=== PATIENT | male | born 1935 | race African-American/Black ===

== ENCOUNTER 2021-11-20 22:15 | Inpatient (IN) | payer OTHER ==
[2021-11-20 22:57] LABS: Bilirubin Neg (Negative); Blood, Urine 10 (Negative); Glucose, Urine (Dipstick) Normal (Negative); Ketone, Urine Negative (Negative); Leukocyte 25 (Negative); Nitrite Positive (Negative); Protein, Urine (Dipstick) 30 mg/dl (Neg-Trace); Urobilinogen Normal mg/dL (Less than 2); pH, Urine 6.5 (5.0-9.0)
[2021-11-20 22:58] LABS: Clarity Clear (Clear)
[2021-11-20 23:08] LABS: Bacteria/HPF Rare-Few HPF (None Seen); Squamous Epithelial 0-3 HPF (0-3); WBC/HPF 21-50 HPF (0-3)
[2021-11-20] MEDS ORDERED: methylPREDNISolone Sod Succ/PF 125 MG/2 ML VIAL ONE (23:24)
[2021-11-20] MEDS ORDERED: Magnesium 2 GM/50 ML BAG (IN WATER) ONE (23:24)
[2021-11-20 23:34] LABS: #Eosinphils 0.2 10x3/uL (0.0-0.5); #Monocytes 0.6 10x3/uL (0.0-1.1); #Neutrophils 7.6 10x3/uL (1.5-8.4); %Basophils 0.2 % (0.0-2.0); %Eosinophils 1.8 % (0.0-6.0); %Lymphocytes 15.2 % (18.0-47.0); %Neutrophils 75.8 % (40.0-75.0); Mean Corpuscular HGB CONC 32.6 g/dL (32.0-36.0); Mean Corpuscular Hemoglobin 28.9 pg (27.0-33.0); Mean Corpuscular Volume 88.7 fl (81.2-95.1); Mean Platelet Volume 8.8 fl (7.4-10.4); Platelet Count 173 10x3/uL (150-450); RBC Distribution Width 15.1 % (11.5-14.5); Red Blood Cell (RBC) Count 4.15 10x6/uL (4.32-5.72)
[2021-11-20 23:36] LABS: SARS-CoV-2 NAA Rapid Test Not Detected (NotDetected)
[2021-11-20 23:53] LABS: AST (SGOT) 21 U/L (5-34); Albumin 3.8 g/dL (3.4-4.8); Alkaline Phosphatase 62 U/L (40-110); Anion Gap 14 mmol/L (10-20); BUN (Urea Nitrogen) 19 mg/dL (8.4-25.7); Bilirubin, Total 0.7 mg/dL (0.2-1.2); Calc. Creatinine Clearance 0 mL/min (70-130); Calcium 8.9 mg/dL (7.8-10.44); Carbon Dioxide 24 mmol/L (23-31); Chloride 108 mmol/L (98-107); Estimated GFR 61; Globulin 3.2 g/dL (2.4-3.5); Glucose 106 mg/dL (83-110); Potassium 4.1 mmol/L (3.5-5.1); Sodium 142 mmol/L (136-145)
[2021-11-20 23:57] LABS: ALT (SGPT) 21 U/L (8-55); CK (CPK) 147 U/L (30-200)
[2021-11-21] MEDS ORDERED: Cefepime 2 GM VIAL ONE (00:31)
[2021-11-21] MEDS ORDERED: Aspirin Chewable 81 MG TAB ONE (00:31)
[2021-11-21] MEDS ORDERED: Senokot S 8.6-50 MG TAB PO PRN (01:22)
[2021-11-21] MEDS ORDERED: Acetaminophen 325 MG TAB PO PRN (01:33)
[2021-11-21 03:58] LABS: #Monocytes 0.1 10x3/uL (0.0-1.1); #Neutrophils 11.2 10x3/uL (1.5-8.4); %Basophils 0.2 % (0.0-2.0); %Monocytes 0.8 % (0.0-10.0); %Neutrophils 95.4 % (40.0-75.0); Hemoglobin 11.8 g/dL (13.5-17.5); Mean Corpuscular Hemoglobin 29.2 pg (27.0-33.0); Mean Corpuscular Volume 88.6 fl (81.2-95.1); Mean Platelet Volume 9.3 fl (7.4-10.4); Platelet Count 161 10x3/uL (150-450); Red Blood Cell (RBC) Count 4.04 10x6/uL (4.32-5.72); White Blood Cell (WBC) Count 11.7 10x3/uL (3.5-10.5)
[2021-11-21] MEDS ORDERED: cefTRIAXone\\ROCEPHIN 1 GM VIAL ONE (04:12)
[2021-11-21] MEDS ORDERED: Azithromycin 500 MG VIAL ONE (04:13)
[2021-11-21] MEDS: cefTRIAXone\\ROCEPHIN 1 GM in Sodium Chloride 0.9% 100 ML IVPB SCH (04:14)
[2021-11-21 04:15] LABS: Anion Gap 15 mmol/L (10-20); BUN (Urea Nitrogen) 18 mg/dL (8.4-25.7); Calc. Creatinine Clearance 0 mL/min (70-130); Calcium 8.7 mg/dL (7.8-10.44); Carbon Dioxide 22 mmol/L (23-31); Chloride 107 mmol/L (98-107); Estimated GFR 68; Glucose 144 mg/dL (83-110); Magnesium 2.2 mg/dL (1.6-2.6); Potassium 4.4 mmol/L (3.5-5.1); Sodium 140 mmol/L (136-145)
[2021-11-21 04:21] LABS: Troponin I 0.049 ng/mL (< 0.028)
[2021-11-21] MEDS: Azithromycin 500 MG in Sodium Chloride 0.9% 250 ML 250 ML IVPB SCH (04:35)
[2021-11-21] MEDS ORDERED: methylPREDNISolone Sod Succ 40 MG VIAL ONE ×2 (05:47→18:47)
[2021-11-21] MEDS: Levothyroxine Sodium 25 MCG TAB PO SCH (06:00)
[2021-11-21] MEDS: methylPREDNISolone Sod Succ 40 MG VIAL IVP SCH ×2 (06:02→18:48)
[2021-11-21] MEDS ORDERED: Metoprolol Tartrate 25 MG TAB ONE (08:27)
[2021-11-21] MEDS ORDERED: Enoxaparin Sodium 40 MG/0.4 ML SYRINGE ONE (08:28)
[2021-11-21] MEDS: Arformoterol 15 MCG/2 ML NEB NEB SCH ×2 (08:46→18:13)
[2021-11-21] MEDS: Loratadine 10 MG TAB PO SCH (09:19)
[2021-11-21] MEDS: Calcium Carbonate 600 MG + Vit D TAB PO SCH ×2 (09:19→21:58)
[2021-11-21] MEDS: Enoxaparin Sodium 40 MG/0.4 ML SYRINGE SC SCH (09:19)
[2021-11-21] MEDS: Metoprolol Tartrate 25 MG TAB PO SCH ×2 (09:20→21:59)
[2021-11-21] MEDS: Budesonide 0.25 MG/2 ML NEB INH SCH (18:14)
[2021-11-21] MEDS: Haloperidol 1 MG TAB PO SCH (21:57)
[2021-11-21] MEDS: Terazosin HCl 5 MG CAP PO SCH (22:02)
[2021-11-22 01:55] VITALS: BMI 22.9
[2021-11-22] MEDS: cefTRIAXone\\ROCEPHIN 1 GM in Sodium Chloride 0.9% 100 ML IVPB SCH (03:14)
[2021-11-22] MEDS: Azithromycin 500 MG in Sodium Chloride 0.9% 250 ML 250 ML IVPB SCH (03:29)
[2021-11-22 04:45] LABS: #Monocytes 0.4 10x3/uL (0.0-1.1); #Neutrophils 13.8 10x3/uL (1.5-8.4); %Basophils 0.1 % (0.0-2.0); %Lymphocytes 3.1 % (18.0-47.0); %Monocytes 2.6 % (0.0-10.0); %Neutrophils 93.5 % (40.0-75.0); Mean Corpuscular HGB CONC 33.4 g/dL (32.0-36.0); Mean Corpuscular Hemoglobin 29.2 pg (27.0-33.0); Mean Corpuscular Volume 87.3 fl (81.2-95.1); Mean Platelet Volume 9.1 fl (7.4-10.4); Platelet Count 204 10x3/uL (150-450); RBC Distribution Width 14.8 % (11.5-14.5); Red Blood Cell (RBC) Count 3.77 10x6/uL (4.32-5.72); White Blood Cell (WBC) Count 14.8 10x3/uL (3.5-10.5)
[2021-11-22 05:03] LABS: Magnesium 2.2 mg/dL (1.6-2.6)
[2021-11-22 05:40] LABS: ALT (SGPT) 19 U/L (8-55); AST (SGOT) 19 U/L (5-34); Albumin 3.6 g/dL (3.4-4.8); Alkaline Phosphatase 60 U/L (40-110); Anion Gap 17 mmol/L (10-20); BUN (Urea Nitrogen) 22 mg/dL (8.4-25.7); Bilirubin, Total 0.4 mg/dL (0.2-1.2); Calc. Creatinine Clearance 53 mL/min (70-130); Carbon Dioxide 22 mmol/L (23-31); Chloride 108 mmol/L (98-107); Estimated GFR 68; Globulin 3.4 g/dL (2.4-3.5); Glucose 133 mg/dL (83-110); Potassium 4.7 mmol/L (3.5-5.1); Sodium 142 mmol/L (136-145)
[2021-11-22] MEDS: methylPREDNISolone Sod Succ 40 MG VIAL IVP SCH ×2 (05:53→18:18)
[2021-11-22] MEDS: Levothyroxine Sodium 25 MCG TAB PO SCH (05:54)
[2021-11-22] MEDS: Arformoterol 15 MCG/2 ML NEB NEB SCH ×2 (07:59→19:00)
[2021-11-22] MEDS: Budesonide 0.25 MG/2 ML NEB INH SCH ×2 (08:02→19:00)
[2021-11-22] MEDS: Metoprolol Tartrate 25 MG TAB PO SCH ×2 (12:38→22:04)
[2021-11-22] MEDS: Enoxaparin Sodium 40 MG/0.4 ML SYRINGE SC SCH (12:38)
[2021-11-22] MEDS: Calcium Carbonate 600 MG + Vit D TAB PO SCH ×2 (12:38→22:04)
[2021-11-22] MEDS: Loratadine 10 MG TAB PO SCH (12:38)
[2021-11-22] MEDS: Terazosin HCl 5 MG CAP PO SCH (22:03)
[2021-11-22] MEDS: Doxycycline 100 MG CAP PO SCH (22:04)
[2021-11-22] MEDS: Haloperidol 1 MG TAB PO SCH (22:04)
[2021-11-23] MEDS: cefTRIAXone\\ROCEPHIN 1 GM in Sodium Chloride 0.9% 100 ML IVPB SCH (03:13)
[2021-11-23] MEDS: Levothyroxine Sodium 25 MCG TAB PO SCH (05:32)
[2021-11-23] MEDS: Budesonide 0.25 MG/2 ML NEB INH SCH (07:23)
[2021-11-23] MEDS: Arformoterol 15 MCG/2 ML NEB NEB SCH (07:35)
[2021-11-23] MEDS ORDERED: predniSONE 20 MG TAB PO SCH (08:00)
[2021-11-23 09:03] VITALS: TEMP 98.1
[2021-11-23] MEDS: Doxycycline 100 MG CAP PO SCH (09:20)
[2021-11-23] MEDS: Metoprolol Tartrate 25 MG TAB PO SCH (09:20)
[2021-11-23] MEDS: Enoxaparin Sodium 40 MG/0.4 ML SYRINGE SC SCH (09:21)
[2021-11-23] MEDS: Calcium Carbonate 600 MG + Vit D TAB PO SCH (09:21)
[2021-11-23] MEDS: Loratadine 10 MG TAB PO SCH (09:21)
[2021-11-23 10:01] VITALS: BP 147/68
== END 2021-11-23 12:24 | DRG 189 ==
LOC: CSHERS 22:15 → EEVIPCON 11-21 02:25 → CSHERHOLD 11-21 02:25 → CSHICU 11-21 20:31 → CSHTELE 11-22 08:16
PROVIDERS: ADMIT Family Medicine; ATTEND Family Medicine
DX: J96.01 Acute respiratory failure with hypoxia (principal); J44.1 Chronic obstructive pulmonary disease with (acute) exacerbation; J98.11 Atelectasis; N39.0 Urinary tract infection, site not specified; Z20.822 Contact with and (suspected) exposure to COVID-19; G30.9 Alzheimer's disease, unspecified; F02.80 Dementia in other diseases classified elsewhere, unspecified severity, without behavioral disturbance, psychotic disturbance, mood disturbance, and anxiety; E03.9 Hypothyroidism, unspecified; N40.0 Benign prostatic hyperplasia without lower urinary tract symptoms; F20.9 Schizophrenia, unspecified; E55.9 Vitamin D deficiency, unspecified; Z87.891 Personal history of nicotine dependence; Z79.51 Long term (current) use of inhaled steroids; Z79.899 Other long term (current) drug therapy; Z99.81 Dependence on supplemental oxygen
CPT/HCPCS: 36415; 71045; 80048; 80053; 81003; 81015; 82550; 82553; 83605; 83735; 84484; 85025; 87040; 87077; 87086; 87186; 93005; 93010; 94640; 94667; 94760; 96365; 96367; 96375; J0456; J0692; J0696; J1650; J2920; J2930; J3475; J3490; J7050; J7512; J7620; J7626; U0002

== ENCOUNTER 2021-11-23 17:31 | Emergency (ER) | payer OTHER ==
[2021-11-23] MEDS ORDERED: Magnesium 2 GM/50 ML BAG (IN WATER) ONE (18:36)
[2021-11-23] MEDS ORDERED: methylPREDNISolone Sod Succ/PF 125 MG/2 ML VIAL ONE (18:36)
[2021-11-23 20:36] LABS: #Monocytes 0.3 10x3/uL (0.0-1.1); #Neutrophils 13.1 10x3/uL (1.5-8.4); %Basophils 0.1 % (0.0-2.0); %Lymphocytes 2.4 % (18.0-47.0); %Monocytes 2.2 % (0.0-10.0); %Neutrophils 94.4 % (40.0-75.0); Hemoglobin 11.7 g/dL (13.5-17.5); Mean Corpuscular HGB CONC 33.1 g/dL (32.0-36.0); Mean Corpuscular Volume 87.4 fl (81.2-95.1); Mean Platelet Volume 8.9 fl (7.4-10.4); Platelet Count 229 10x3/uL (150-450); RBC Distribution Width 15.3 % (11.5-14.5); Red Blood Cell (RBC) Count 4.04 10x6/uL (4.32-5.72); White Blood Cell (WBC) Count 13.8 10x3/uL (3.5-10.5)
[2021-11-23 20:48] LABS: ALT (SGPT) 21 U/L (8-55); AST (SGOT) 18 U/L (5-34); Alkaline Phosphatase 64 U/L (40-110); Anion Gap 16 mmol/L (10-20); BUN (Urea Nitrogen) 27 mg/dL (8.4-25.7); Bilirubin, Total 0.6 mg/dL (0.2-1.2); Calc. Creatinine Clearance 0 mL/min (70-130); Calcium 9.4 mg/dL (7.8-10.44); Carbon Dioxide 22 mmol/L (23-31); Chloride 108 mmol/L (98-107); Estimated GFR 72; Globulin 3.2 g/dL (2.4-3.5); Glucose 144 mg/dL (83-110); Potassium 4.3 mmol/L (3.5-5.1); Protein, Total 7.2 g/dL (5.8-8.1); Sodium 142 mmol/L (136-145)
[2021-11-23 21:52] LABS: Bilirubin Neg (Negative); Blood, Urine 25 (Negative); Glucose, Urine (Dipstick) Normal (Negative); Ketone, Urine Negative (Negative); Leukocyte Negative (Negative); Nitrite Negative (Negative); Protein, Urine (Dipstick) 15 mg/dl (Neg-Trace); Specific Gravity, Urine 1.015 (1.005-1.030); Urobilinogen Normal mg/dL (Less than 2)
[2021-11-23 22:02] LABS: Bacteria/HPF None Seen HPF (None Seen); Squamous Epithelial 0-3 HPF (0-3); WBC/HPF 0-3 HPF (0-3)
[2021-11-23 23:15] LABS: SARS-CoV-2 NAA Rapid Test Not Detected (NotDetected)
[2021-11-24] MEDS ORDERED: Enoxaparin Sodium 30 MG/0.3 ML SYRINGE ONE (02:33)
[2021-11-24] MEDS ORDERED: Enoxaparin Sodium 60 MG/0.6 ML SYRINGE ONE (02:34)
== END 2021-11-24 03:11 | disposition short-term general hospital (02) ==
LOC: EEVIPCON 17:31 → CSHERS 17:31
DX: J44.1 Chronic obstructive pulmonary disease with (acute) exacerbation (principal); E03.9 Hypothyroidism, unspecified; I10 Essential (primary) hypertension; Z20.822 Contact with and (suspected) exposure to COVID-19
CPT/HCPCS: 71045; 80053; 81003; 81015; 83605; 84484; 85025; 85379; 93005; 94640; 94760; 96374; 96375; J1650; J2930; J3475; J7620; U0002